=== PATIENT | female | born 1985 | race Caucasian/White ===

== ENCOUNTER 2024-12-26 11:03 | Emergency (ER) | payer BC, SELFPAY ==
--- OUTSIDE RECORDS SUMMARY | 2024-12-26 11:06 | XMS_ITS | Clinical Summary ---
Author Organization [facility] Address [address] [place] [address] Care Team Providers Care Primer Boxer Name Role Phone None, Provider MD Primary Care Provider Unavaila ble Allergies Active Allergy Reactions Criticality Noted Date Comments Nickel Unknown,Hives,Rash,Swelling Low 10/08/19 12 Medications vitamin D2, ergocalciferol, 76517 UNITS capsule Take 1 capsule (50,000 Units total) by mouth once a week. 08/19/20 21 Active cetirizine 10 MG tabletIndicatio ns:Intractable migraine with aura with status migrainosus Take 1 tablet (10 mg total) by mouth daily. 30 tablet 5 02/09/20 22 Active NON FORMULARY 144 mg. Neuro-mag 3 capsules Active ZEPBOUND 10 MG/0.5ML injection INJECT 10MG SUBCUTANEOUSLY ONCE A WEEK FOR 28 DAYS 10/15/19 24 Active NON FORMULARYIndica tions:NAD PLUS Inject as directed 2 (two) times a week. Indications: NAD PLUS Active semaglutide-tonia ght management (WEGOVY) 1.7 mg/dose injection (PEN)Indication s:Weight Loss Inject 1.7 mg into the skin once a week. Indications: Weight Loss Active Active Problems Problem Noted Date Diagnosed Date Overweight (BMI 25.0-29.9) 02/08/2022 Intractable migraine with aura with status migra inosus 02/08/2022 Insulin resistance syndrome 08/13/2017 PCO (polycystic ovaries) 08/13/2017 Anxiety 02/10/2015 Insomnia 02/10/2015 Resolved Problems Problem Noted Date Diagnosed Date Resolved Date Wears contact lenses 12/17/2017 020 Wears glasses 12/17/2017 06/02/2020 Encounters Date Type Department Care Team Description 12/16/2024 9:19 AM CDT - 12/16/2024 11:59 PM CDT Hospital Encounter [facility] [address] [place] [address] Zoraida Goodwin MD Discharge Disposition: Home or Self Care (Routine Discharge) 12/16/2024 Travel 10/29/2024 1:00 PM MANAGER [employer]IANCE Office Visit [facility] [address] [place] [address] Kiel Byers PA Sinus Problem (Pt c/o fever, cough, nasal congestion, chest heaviness and fatigue. Pt symptoms off and on since Sep symptoms worse since ) 10/29/2024 Travel from Last 3 Months Immunizations Name Administration Dates Next Due Influenza (Generic) 10/29/2011 Influenza Adult (Generic) 09/03/2021,07/18/2020 Tdap (Boostrix) 11/02/2023 Tdap (Generic) 01/24/2012 Family History Medical History Relation Comments Breast Cancer Neg Hx Social History Tobacco Use Types Packs/Day Years Used Date Smoking Tobacco: Never Smokeless Tobacco: Never Tobacco Cessation:Counseling Given: No Alcohol Use Standard Drinks/Week Comments Yes 0 (1 standard drink = 0.6 oz pur e alcohol) rarely AUDIT-C Answer Date Recorded Frequency of Alcohol Consumption Never 07/25/2019 Average Number of Drinks Not on file 019 Frequency of Binge Drinking Not on file 11/2018 PHQ-2 Answer Date Recorded Patient Health Questionnaire-2 Score 0 03/12/2024 Comments No Sex and Gender Information Value Date Recorded Sex Assigned at Female 11/19/2024 1:35 PM MANAGER [employer]IANCE Legal Sex Female 7:57 PM CDT Gender Identity Not on file Sexual Orientation Not on file Last Filed Vital Signs Vital Sign Reading Time Taken Comments Blood Pressure 111/69 10/29/2024 11:02 AM MANAGER [employer]IANCE Pulse 100 10/29/2024 11:02 AM MANAGER [employer]IANCE Temperature 37.2 C (99 F) 10/29/2024 11:02 AM MANAGER [employer]IANCE Respiratory Rate 18 10/29/2024 11:02 AM MANAGER [employer]IANCE Oxygen Saturation 99% 10/29/2024 11:02 AM MANAGER [employer]IANCE Inhaled Oxygen Concentration - - Weight 76.2 kg (168 lb) 10/29/2024 11:02 AM MANAGER [employer]IANCE Height 170.2 cm (5' 7 ) 10/29/2024 11:02 AM MANAGER [employer]IANCE Body Mass Index 26.31 10/29/2024 11:02 AM MANAGER [employer]IANCE Plan of Treatment Health Maintenance Due Date Last Done Comments Annual Physical 1986 Hepatitis C 2001 Hepatitis B Vaccines (1 of 3 - 19+ 3-dose series) 2002 Cervical Cancer Screening Pa p Smear (Age 30 to 64) Every 3 Years 06/13/2023 06/13/2020 COVID-19 Vaccine ( - 2023-2 5 season) 2024 09/03/2021, 01/22/2021, 01/01/2021 PHQ-2 (Physician [place]) 09/22/2024 03/12/2024 Cervical Cancer Screening Pa p with HPV Testing (Age 30 to 64) Every 5 Years 06/13/2025 06/13/2020, 06/13/2020 Cervical Cancer Screening wi th HPV 06/13/2025 Mammogram Screening 12/16/2026 12/16/2024, 11/27/2022 DTaP, Tdap and Td Vaccines ( 3 - Td or Tdap) 11/02/2033 11/02/2023, 01/24/2012 HPV Vaccines Aged Out No longer eligi ble based on patient's age to complete this topic Meningococcal B Vaccine Aged Out No l onger eligible based on patient's age to complete this topic Meningococcal Vaccine Aged Out No miri tere eligible based on patient's age to complete this topic Pneumococcal Vaccine: Pediatrics (0 to 5 Years) and At-Risk Patients (6 to 64 Years) Aged Out No longer eligible b ased on patient's age to complete this topic RSV Immunizations Under 20 Months Aged Out No longer eligible b ased on patient's age to complete this topic Procedures Procedure Name Priority Date/Time Associated Diagnosis Comments MG SCREENING W CHRISTEN ASHLIE DIGI Routine 12/16/2024 9:58 AM CDT Encounter for screening mammogram for malignant neoplasm of breast CORONAVIRUS (COVID-19) INFLUENZA A & B ANTIGEN IA PANEL Routine 10/29/2024 Suspected COVID-19 virus infection OUTSIDE CYTOPATH CERV/VAG INTERPRET (PAP) Routine 06/13/2020 from Last 3 Months or Most Recently Relevant to Health Maintenance Results * MG SCREENING W CHRISTEN ASHLIE DIGI (12/16/2024 9:58 AM CDT) Anatomical Region Laterality Modality Breast Bilateral Mammography 12/16/2024 4:58 PM CDT Impressions 12/16/2024 5:00 PM CDT ===== IMPRESSION: ===== 1. Stable mammographic appearance with no new findings to suggest malignancy in either breast. Assessment: ACR BI-RADS 1 - NEGATIVE Recommendation: 1:Routine Screening Bilateral Comments: Ordered By: ZORAIDA GOODWIN Interpreted By: Juan Perez, 12/16/2024 4:58 PM Narrative 12/16/2024 5:00 PM CDT [facility] [address] [place], [place] [id number] EXAMINATION: Digital bilateral screening mammogram with 3-D tomosynthesis EXAM DATE/TIME: 12/16/2024 9:21 AM REASON FOR EXAM: Screening COMPARISON: 11/27/2022 baseline exam Technique: Digital screening mammography of both breasts was performed in addition to 3-D Tomosynthesis technique. This study was read with the assistance of a computer-aided detection system. Tissue density: The breasts are heterogeneously dense, which may obscure small masses. Findings: There is no new focal asymmetry, dominant mass lesion, area of skin thickening, or cluster of suspicious appearing calcifications in either breast to suggest malignancy. us Zoraida Goodwin MD MAMMO Final Result * (ABNORMAL) CORONAVIRUS (COVID-19) INFLUENZA A & B ANTIGEN IA PANEL (10/29/2024) CORONAVIRUS ANTIGEN IA NEGATIVE NEGATIVE -88033 DEO FELDM[facility] INFLUENZA A POSITIVE(A) NEGATIVE MG-128 60 HENOK REDDY INFLUENZA B NEGATIVE NEGATIVE MG-23755 DEO FELDMAN [place] Internal Control: VALID VALID -[id number] DE[address] FELDM[facility] [place] NASAL STRUCTURE / Unknown 10/29/2024 us Kiel [place] [facility] - GENERAL ORDERAB LES Final Result Performing Organization Address City/[facility]/ZIP Co de Phone Number -[phone] [address] [place] [place] [address] [place] [address], * PAP SMEAR WITH HPV (06/13/2020) 06/13/2020 us Documents Scanned SCANNING Final Result Performing Organization Address City/[facility]/ZIP Co de Phone Number [facility] from Last 3 Months or Most Recently Relevant to Health Maintenance Insurance Care Teams Primer Boxer Relationship Specialty Start Date End Date None, Provider, MD PCP - General UNKNOWN PHYSICIAN SPECIALTY 08/21/23
--- OUTSIDE RECORDS SUMMARY | 2024-12-26 11:06 | XMS_ITS | Clinical Summary ---
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, shellie t wins, prothrombin (heparin), elev bp (labs ok) 01/12/2012 Di/Di, PTL, CL 11/05 1.4 w/ f unnel, s/p indocin, toco prn; PNC 11/05 br-76%/br-68%; Prothrombin mutation, lovenox, 10/22/2011 Immunizations Immunization Administration Dates Next Due (ADACEL/BOOSTRIX)(10 YR UP) TDAP VACCINE, 0.5ML, IM 01/24/2012 Influenza Vaccine Split PF ID 10/29/2011 Rho (D) IMMUNE GLOBULIN 1,500 UNIT(300 MCG) INJE CTION 12/05/2011 Family History Medical History Relation Name Comments Healthy Brother Healthy Father Cancer Maternal Grandfather Healthy Maternal Grandmother Healthy Mother Cancer Paternal Grandfather Other Paternal Grandmother alzheim ers Cancer Sister reproductive or wilmer Relation Name Status Comments Brother Father Maternal Grandfather Maternal Grandmother Mother Paternal Grandfather Paternal Grandmother Sister Social History Tobacco Use Types Packs/Day Years Used Date Smoking Tobacco: Former Cigarettes 0 01/21/1998 - 01/21/2003 Smokeless Tobacco: Never Tobacco Cessation:Counseling Given: No Alcohol Use Standard Drinks/Week Comments No 0 (1 standard drink = 0.6 oz pur e alcohol) Comments No Sex and Gender Information Value Date Recorded Sex Assigned at Not on file Legal 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 Gender Identity Not on file Sexual Orientation Not on file Occupation Industry Job Start Date Job End Date Not on file Not on file Not on file Not on file Last Filed Vital Signs Vital Sign Reading Time Taken Comments Blood Pressure 120/70 06/13/2020 11:20 AM CDT Pulse 78 01/26/2012 7:45 AM CDT Temperature 36.9 C (98.5 F) 01/26/2012 7:45 AM CDT Respiratory Rate 20 01/26/2012 7:45 AM CDT Oxygen Saturation 97% 01/22/2012 4:08 PM CDT Inhaled Oxygen Concentration - - Weight 106.3 kg (234 lb 6.4 oz) 020 11:20 AM CDT Height 170.2 cm (5' 7 ) 06/13/2020 11:2 0 AM CDT Body Mass Index 36.71 06/13/2020 11:20 AM CDT Plan of Treatment Health Maintenance Due Date Last Done Comments HEPATITIS B VACCINES (1 of 3 - 19+ 3-dose series) 2002 HPV/Cotest (21-29) 02/26/2004 HPV/Cotest (30-65) 2013 DTAP/TDAP/TD VACCINES (2 - T d or Tdap) 01/23/2022 01/24/2012 BREAST CANCER SCREENING 2023 CERVICAL CANCER SCREENING 06/13/2023 PAP SMEAR 06/13/2023 06/13/2020 INFLUENZA VACCINE (#1) 2024 10/29/2011 HPV VACCINES Aged Out No longer eligi ble based on patient's age to complete this topic Procedures Procedure Name Priority Date/Time Associated Diagnosis Comments CERV/VAG CYTO AGE BASED SCREEN PAP Routine 06/13/2020 12:05 PM CDT Encounter for gynecological examination without abnormal finding Special screening examination for human papillomavirus (HPV) from Last 3 Months or Most Recently Relevant to Health Maintenance Results * CERV/VAG CYTO AGE BASED SCREEN PAP (06/13/2020 12:05 PM CDT) COMMENT (PAP): SEE COMMENT 0 12:03 PM CDT [facility] Comment: This order for age-based cervical cancer and STI screening follows ACOG guidelines(PB 168, 140, KYZ536). See individual assays for performing site location. CLINICAL INFORMATION Routine exam 06/20/2020 12:03 PM CDT [facility] LAST MENSTRUAL PERIOD 05/27/2020 06/20/2020 12:03 PM CDT [facility] PREV PAP: 06/28/2014 NIL 06/20/2020 12:03 PM CDT [facility] PREV BX: INFORMATION NOT PROVIDED 06/20/2020 12:03 PM CDT [facility] SOURCE Endocervix 06/20/2020 12:03 PM CDT [facility] ADEQUACY: SEE COMMENT 06/20/2020 12:03 PM CDT [facility] Comment: Satisfactory for evaluation. Endocervical/transformation zone component present. PAP INTERP Negative for intraepithelial lesion or malignancy. 06/20/2020 12:03 PM CDT [facility] COMMENT This Pap test has been evaluated with computer assisted technology. 06/20/2020 12:03 PM CDT [facility] GROOVER OPERATOR: SEE COMMENT 2019 12:03 PM CDT [facility] Comment: TMK, CT(ASCP) CT screening location: [place] [address] [place] [address] EXPLANATORY NOTE SEE COMMENT 020 12:03 PM CDT [facility] Comment: EXPLANATORY NOTE: The Pap is a screening test for cervical cancer. It is not a diagnostic test and is subject to false negative and false positive results. It is most reliable when a satisfactory sample, regularly obtained, is submitted with relevant clinical findings and history, and when the Pap result is evaluated along with historic and current clinical information. HPV E6/E7 Not Detected Not Detected 06/20/2020 12:03 PM CDT [facility] Comment: This test was performed using the APTIMA HPV Assay ([employer] This assay detects E6/E7 viral messenger RNA (mRNA) from 14 high-risk HPV types (16,18,31,33,35,39,45,51,52,56,58,59,66,68). The analytical performance characteristics of this assay have been determined by [employer]. The modifications have not been cleared or approved by the FDA. This assay has been validated pursuant to the CLIA regulations and is used for clinical purposes. Genital SWAB OF ENDOCERVIX / Unknown Collection / Unknown 06/13/2020 12:05 PM CDT 06/13/2020 7:52 PM CDT Narrative [facility] - 06/20/2020 12:03 PM CDT Performing Organization Information: Site ID: [id number] [facility]: [facility] Address: [address] [place] [address] Director: Anam Phillips D.O., MPH Site ID: [id number] [facility] Address: [address] [place] [address] Director: Marisa Velasco Kvng Chowdhury MD PATHOLOGY/CYTOLOGY ORDERABLE S Final Result [facility] [phone] from Last 3 Months or Most Recently Relevant to Health Maintenance Insurance [facility] BLUE ACCESS/TRUE BLUE PPO Advance Directives For more information, please contact: [phone] * Full Code (Latest Code Status on File) Date Activated Date Inactivated Comments 01/22/2012 4:25 PM 01/26/2012 1:53 PM * Full Code Date Activated Date Inactivated Comments 01/22/2012 10:34 AM 01/22/2012 4:25 PM * Full Code Date Activated Date Inactivated Comments 01/12/2012 4:02 AM 01/12/2012 6:34 AM * Full Code Date Activated Date Inactivated Comments 12/19/2011 6:39 PM 12/19/2011 10:32 PM * Full Code Date Activated Date Inactivated Comments 10/22/2011 12:42 PM 11/15/2011 4:17 PM Care Teams Weight Recorder Relationship Specialty Start Date End Date Arian White MD PCP - General Internal Medicine 09/10/11
--- OUTSIDE RECORDS SUMMARY | 2024-12-26 11:06 | XMS_ITS | Encounter Summary ---
Author Organization [employer] Address 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 Gender Identity Not on file Sexual Orientation Not on file documented as of this encounter Plan of Treatment Not on file documented as of this encounter Procedures Procedure Name Priority Date/Time Associated Diagnosis Comments HEMOGLOBIN AND HEMATOCRIT Routine 01/23/2005 12:48 PM CDT POC , URINE Routine 01/23/2005 12:20 PM CDT documented in this encounter Results * HEMOGLOBIN AND HEMATOCRIT (01/23/2005 12:48 PM CDT) HEMOGLOBIN 11.8 11.8 - 14.8 g/dL INTERFACE SYSTEM HEMATOCRIT 35.9 35.5 - 44.0 % INTERFACE SYSTEM 01/23/2005 12:4 8 PM CDT us Geovanny Talamantes MD HEMATOLOGY ORDERABLES Final Res ult Performing Organization Address City/[facility] Co de Phone Number INTERFACE SYSTEM Refer to clinic/hospital department * POC , URINE (01/23/2005 12:20 PM CDT) HCG QUAL URINE Negative Negative INTER FACE SYSTEM SPECIFIC GRAVITY UA 1.020 1.001 - 1.035 INTERFACE SYSTEM 01/23/2005 12:2 0 PM CDT us Geovanny Talamantes MD POINT OF CARE TESTING Final Res ult Performing Organization Address [facility] de Phone Number INTERFACE SYSTEM Refer to clinic/hospital department documented in this encounter Visit Diagnoses Diagnosis Excessive or frequent menstruation- Primary documented in this encounter Care Teams Sales Data Analyst Relationship Specialty Start Date End Date Arian White MD PCP - General Internal Medicine 09/10/11 documented as of this encounter
--- OUTSIDE RECORDS SUMMARY | 2024-12-26 11:06 | XMS_ITS | Continuity of Care Document ---
Author Organization [facility] Address [address] [place] [address] Phone Care Team Providers Care Zone Manager Name Role Phone Unavailable Unavailable Unavailable Advance Directives Directive Yes / No Effective Date File Name No Information Encounters Encounter Description Practice Location Reason(s) For Visit Diagnoses Date Provider Providers Copied on Encounter [facility], [address], [place], [id number], tel:[phone] [facility] OUT[facility]IENT No Information No Information Referring Provider: ELGIN Horan, [facility] [place], [address]. tel:[phone] Family History Family Member Type Diagnosis Age At Onset No Information Payers Payer name Insurance type Covered democrat ID Authoriza timonserrat(s) No Information Social History Type Description Quantity Date Captured Comments Sex Female Smoking Status No Information Chief Complaint And Reason For Visit No Information History Of Present Illness Encounter Date Complaint History Of Prese nt Illness No Information Instructions Date Instruction Additional Infor mation No Information Assessments Type Assessment Date No Information
--- OUTSIDE RECORDS SUMMARY | 2024-12-26 11:08 | XMS_ITS | Continuity of Care Document ---
Author Organization [facility] Address [address] [place] [address] Phone Care Team Providers Care Hydraulic Engineer Name Role Phone Unavailable Unavailable Unavailable Advance Directives Directive Yes / No Effective Date File Name No Information Encounters Encounter Description Practice Location Reason(s) For Visit Diagnoses Date Provider Providers Copied on Encounter [facility], [address] [place], [place], [id number], tel:[phone] [facility] OUTPATIENT No Information No Information Referring Provider: ELGIN Horan, [facility] [place], [address]. tel:[phone] Family History Family Member Type Diagnosis Age At Onset No Information Payers Payer name Insurance type Covered green party ID Authoriza timonserrat(s) No Information Social History Type Description Quantity Date Captured Comments Sex Female Smoking Status No Information Chief Complaint And Reason For Visit No Information History Of Present Illness Encounter Date Complaint History Of Prese nt Illness No Information Instructions Date Instruction Additional Infor mation No Information Assessments Type Assessment Date No Information
[2024-12-26 11:13] VITALS: BP 131/85; PULSE 89; RESP 18; TEMP 36.4; O2SAT 100
--- NOTE | 2024-12-26 11:14 | ED_ITS ---
HPI - Headache General Chief Complaint: Headache Stated Complaint: headache,dizziness,nausea Time Seen by Provider: 12/26/24 11:20 Source: patient Mode of arrival: ambulatory Limitations: no limitations History of Present Illness HPI Narrative: Venessa is a 39-year-old female patient presenting to the clinic today with complaints of headache, dizziness, and nausea x1 day. Headache was an 8/10 and felt like it was coming from the back of her head to the front. States she took Excedrin migraine and Dramamine yesterday. States he is medications put her to sleep and when she woke up this morning the headache was gone however she is still suffering from dizziness and nausea. States that she suffers from possible seasonal migraines but has never been actually diagnosed with migraine headache. States the dizziness is worse when she turns her head to the right- feels unbalanced when walking and has associated nausea. Vision is blurry at times with the dizziness. No vomiting. Denies any URI symptoms. Related Data Allergies Allergy/AdvReac Type Severity Reaction Status Date / Time No Known Allergies Allergy Mild Verified 12/26/24 11:11 Review of Systems Review of Systems: Pertinent positives per HPI. Patient denies any fever, chills, rash, cough, shortness of breath, chest pain, palpitations, vomiting, diarrhea, constipation, abdominal pain, or any urinary issues. PMFSH Comments At the time of my signature, I reviewed and agree with the nursing past medical, surgical, social, and family history. There is no relevant family history pertinent to the patient complaint. Exam Narrative: General: Well-developed, well nourished, in no apparent distress Head: Normocephalic, atraumatic Eyes: Pupils equally round and reactive to light bilaterally, EOM intact, sclera and conjunctive clear, no discharge, lids normal, horizontal nystagmus when turning her head to the right Ears: TMs intact and clear, ear canals clear, no drainage, grossly hearing normal. Nose: Nares patent, no discharge, no inflammation, no sinus tenderness. Mouth: Oropharynx without lesions or masses, good dentition, MMM. Tongue midline, even rise and fall of uvula Neck: Supple, trachea midline, no enlargement of anterior or posterior cervical nodes, no thyroid masses or goiter palpable. Cardio: Regular rate and rhythm, s1 and s2 normal, no murmur appreciated. Resp: Clear to auscultation bilaterally anteriorly and posteriorly, no rhonchi, rales, wheezing or rubs Musculoskeletal: No deformity, non-tender to palpation, grossly normal range of motion, muscle strength strong and equal, peripheral pulse strong, no edema, no cyanosis, normal gait and station Neuro: Alert and oriented x4 with normal speech, no focal deficits, cranial nerves I through XII intact, muscle strength 5 out of 5, sensation intact bilaterally, negative Romberg test Course Course Emergency Course: Portions of this record may have been created with voice recognition software. Level of Care: Express Care Visit Vital Signs Vital signs: Vital Signs Temperature 36.4 C 12/26/24 11:13 Pulse Rate 89 12/26/24 11:13 Respiratory Rate 18 12/26/24 11:13 Blood Pressure 131/85 12/26/24 11:13 Pulse Oximetry 100 12/26/24 11:13 Oxygen Delivery Room Air 12/26/24 11:13 Temperature 36.4 C 12/26/24 11:13 Pulse Rate 89 12/26/24 11:13 Respiratory Rate 18 12/26/24 11:13 Blood Pressure 131/85 12/26/24 11:13 Pulse Oximetry 100 12/26/24 11:13 Oxygen Delivery Room Air 12/26/24 11:13 Vital signs reviewed MDM - Headache MDM Narrative Medical decision making narrative: At the time of visit patient is resting comfortably on the exam table. Patient appears to be nontoxic. Procedures: Stephanie maneuver on the right ear was performed in the clinic today and was successful-patient's dizziness and nausea improved Plan: Patient denies any headache currently at this time. Dizziness has improved after Stephanie maneuver was performed on the right side. Will send in Rx for zofran-patient has Dramamine at home. Red flag symptoms were reviewed with the patient and she voiced understanding. Supportive measures were discussed with the patient and they voiced understanding discharge instructions and agrees to treatment plan. Return precautions reviewed Differential Diagnosis Differential diagnosis: Likely migraine, tension headache, subarachnoid hemorrhage, headache, meningitis, sinusitis and other (Vertigo, viral syndrome, BPPV, dehydration, hypovolemia, anxiety) Lab Data Labs: Lab Results 12/26/24 Range/Units 11:43 POC Influenza A Ag Pending POC Influenza B Ag Pending POC SARS CoV-2 Ag Negative (Negative) Discharge Plan Discharge Clinical Impression: Benign paroxysmal positional vertigo of right ear, Nausea Patient Disposition: Home, Self-Care Condition: Stable Instructions: Antibiotic Form, Acute Nausea and Vomiting (ED), Benign Paroxysmal Positional Vertigo (ED) Additional Instructions: COVID and influenza testing was negative. May take Zofran as needed for nausea. May continue Dramamine for dizziness Stephanie maneuver was performed in the clinic and this improved patient's symptoms Increase fluids and stay well hydrated Eat a well-balanced diet Change positions slowly May perform Stephanie maneuver at home if needed If symptoms worsen recommend going to the emergency room-headache not controlled by Tylenol/Motrin, confusion, weakness, lethargy, slurred speech, nausea and vomiting, worsening of dizziness, or worsening in visual changes. Patient Language: Indonesian Prescriptions: New ondansetron 4 mg tablet,disintegrating 4 mg PO Q6H PRN (Reason: nausea and vomiting) 3 Days Qty: 12 0RF Follow-up/Referrals: PHYSICIAN,INFORMATION [employer] [Primary Care Provider] - Time of Disposition: 11:44 Quality NIHSS Nursing Documentation ED NIHSS nursing documentation: reviewed/agree
[2024-12-26 11:44] LABS: EDCOVIDSCREEN Negative (Negative)
[2024-12-26 11:48] LABS: EDINFLUASCREEN Negative (Negative); EDINFLUBSCREEN Negative (Negative)
== END 2024-12-26 11:47 | disposition home or self-care (01) ==
PROVIDERS: Emergency Provider Nurse Practitioner Family
DX: H81.11 Benign paroxysmal vertigo, right ear (principal); R11.0 Nausea; Z20.822 Contact with and (suspected) exposure to COVID-19; Z86.16 Personal history of COVID-19
CPT/HCPCS: 87426; 87804; 99203; G0463